=== PATIENT | male | born 1980 | race American Indian/Alaskan Native ===

== ENCOUNTER 2025-06-27 06:36 | Emergency (ER) | payer OTHER ==
[~2025-06-27] VITALS: Ht 180.3 cm; Wt 118.0 kg
[~2025-06-27 06:36] MED LIST: ELIMITE60 GM TOP
[2025-06-27] MEDS ORDERED: TRAMADOL HCL 50 MG HOME.PACK PO ONE (07:00)
[2025-06-27] MEDS ORDERED: IBUPROFEN 800 MG TAB PO ONE (07:15)
[2025-06-27] MEDS ORDERED: TRAMADOL HCL50 MG PO (07:17)
[2025-06-27] MEDS ORDERED: IBU800 MG PO (07:17)
[2025-06-27 07:42] VITALS: BP 137/89
== END 2025-06-27 07:51 | disposition home or self-care (01) ==
LOC: ED 06:36
DX: M23.91 Unspecified internal derangement of right knee (principal)
CPT/HCPCS: 99283; A9270